=== PATIENT | female | born 1980 | race Caucasian/White ===

== ENCOUNTER 2017-03-12 13:59 | Inpatient (IN) | payer BC ==
[2017-03-12] MEDS ORDERED: Nalbuphine 20 MG/1 ML Amp IVPUSH PRN (17:17)
[2017-03-12] MEDS ORDERED: Ondansetron 4 MG/2 ML SDV IVPUSH PRN (17:17)
[2017-03-12] MEDS ORDERED: Oxytocin/Lactated Ringers 10 UNIT/1,000 ML BAG IV SCH (17:30)
[2017-03-12] MEDS: Lactated Ringers 1,000 ML IV SCH ×2 (19:15→20:20)
--- NOTE | 2017-03-12 19:37 | PCM.PREANE ---
Preanesthetic Assessment - Procedure Proposed Procedure: Continuous Labor Epidural - Anesthesia/Transfusion/Family Hx Anesthesia History: Prior Anesthesia Without Reaction Transfusion History: No Prior Transfusion(s) - Review of Systems General: No Symptoms Pulmonary: No Symptoms Cardiovascular: No Symptoms Gastrointestinal: No symptoms Neurological: No Symptoms Other: Reports: None - Physical Assessment NPO Status Date: 03/12/17 NPO Status Time: 18:30 O2 Sat by Pulse Oximetry: 100 Respiratory Rate: 15 Vital Signs: Last Vital Signs Temp 36.5 C 03/12/17 17:17 Pulse 79 03/12/17 17:17 Resp 15 03/12/17 17:17 BP 119/76 03/12/17 17:17 Pulse Ox 100 03/12/17 17:17 Height: 1.8 m Weight: 73.028 kg ASA Class: 2 Airway Class: Mallampati = 1 Dentition: Reports: Normal Dentition Thyro-Mental Finger Breadths: 3 Mouth Opening Finger Breadths: 3 ROM/Head Extension: Full Lungs: Clear to auscultation, Normal respiratory effort Cardiovascular: Regular Rate, Regular Rhythm, No Murmurs - Lab Values: Laboratory Last Values WBC 8.56 K/mm3 (3.98-10.04) 03/12/17 17:05 RBC 4.65 M/mm3 (3.98-5.22) 03/12/17 17:05 Hgb 12.5 gm/L (11.2-15.7) 03/12/17 17:05 Hct 37.8 % (34.1-44.9) 03/12/17 17:05 MCV 81.3 fl (79.4-94.8) 03/12/17 17:05 MCH 26.9 pg (25.6-32.2) 03/12/17 17:05 MCHC 33.1 g/dl (32.2-35.5) 03/12/17 17:05 RDW Std Deviation 51.7 fL (36.4-46.3) H 03/12/17 17:05 Plt Count 170 K/mm3 (182-369) L 03/12/17 17:05 MPV 11.5 fl (9.4-12.3) 03/12/17 17:05 Neut % (Auto) 56.6 % (34.0-71.1) 03/12/17 17:05 Lymph % (Auto) 32.8 % (19.3-51.7) 03/12/17 17:05 [place] % (Auto) 7.8 % (4.7-12.5) 03/12/17 17:05 Eos % (Auto) 1.9 (0.7-5.8) 03/12/17 17:05 Baso % (Auto) 0.2 % (0.1-1.2) 03/12/17 17:05 Neut # (Auto) 4.84 K/mm3 (1.56-6.13) 03/12/17 17:05 Lymph # (Auto) 2.81 K/mm3 (1.18-3.74) 03/12/17 17:05 [place] # (Auto) 0.67 K/mm3 (0.24-0.36) H 03/12/17 17:05 Eos # (Auto) 0.16 K/mm3 (0.04-0.36) 03/12/17 17:05 Baso # (Auto) 0.02 K/mm3 (0.01-0.08) 03/12/17 17:05 - Allergies Allergies/Adverse Reactions: Allergies Allergy/AdvReac Type Severity Reaction Status Date / Time No Known Allergies Allergy Verified 03/12/17 14:15 - Blood Blood Available: No - Acknowledgements Anesthesia Type Planned: Epidural Pt an Appropriate Candidate for the Planned Anesthesia: Yes Alternatives and Risks of Anesthesia Discussed w Pt/Guardian: Yes Pt/Guardian Understands and Agrees with Anesthesia Plan: Yes PreAnesthesia Questionnaire - Past Health History Medical/Surgical History: Denies Medical/Surgical History [employer]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) : 3 Para: 2 - SUBSTANCE USE Smoking Status *Q: Never Smoker Tobacco Use Within Last Twelve Months: No Second Hand Smoke Exposure: No Days Per Week of Alcohol Use: 0 Recreational Drug Use History: No - HOME MEDS Home Medications: Home Meds Ferrous Sulfate [Iron] 325 mg PO DAILY 03/12/17 [History] Vit W-Ca,Fe,FA(<1 mg) [ Vitamins] 1 tab PO DAILY 03/12/17 [ History] - CURRENT (IN HOUSE) MEDS Current Meds: Current Medications Lactated Ringer's (Ringers, Lactated) 1,000 mls @ 100 mls/hr IV ASDIRECTED [facility] Oxytocin/Lactated Ringer's (Pitocin In Lr 10 Units/1,000 Ml) 10 unit in 1,000 mls @ 500 mls/hr IV ASDIRECTED [facility] Nalbuphine HCl (Nubain) 10 mg IVPUSH Q2H PRN PRN Reason: Pain (moderate 4-6) Ondansetron HCl (Zofran) 4 mg IVPUSH Q4H PRN PRN Reason: Nausea/Vomiting
[2017-03-12] MEDS ORDERED: Bupivacaine/fentaNYL/NS 100 ML Bag EPIDUR SCH (19:45)
--- NOTE | 2017-03-12 22:21 | PCM.LDHP ---
L&D History of Present Illness - General Date of Service: 03/12/17 Admit Problem/Dx: Patient Status Order with Admit Dx/Problem 03/12/17 17:17 Patient Status [ADT] Routine Admission Diagnosis/Problem Admission Diagnosis/Problem Source of Information: Patient History Limitations: Reports: No Limitations - History of Present Illness Introduction:: 36 year old at 39w5d here for elective induction of labor for maternal discomfort. PNC with myself without complications. 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: (current) Social & Family History - Family History Family Medical History: Noncontributory - Tobacco Use Smoking Status *Q: Never Smoker Second Hand Smoke Exposure: No - Caffeine Use Caffeine Use: Reports: None - Alcohol Use Days Per Week of Alcohol Use: 0 - Recreational Drug Use Recreational Drug Use: No - Living Situation & Occupation Living situation: Reports: , with Spouse, with Family Occupation: Employed H&P Review of Systems - Review of Systems: Review Of Systems: See Below General: Reports: No Symptoms HEENT: Reports: No Symptoms Pulmonary: Reports: No Symptoms Cardiovascular: Reports: No Symptoms Gastrointestinal: Reports: No Symptoms Genitourinary: Reports: No Symptoms Musculoskeletal: Reports: No Symptoms Skin: Reports: No Symptoms Psychiatric: Reports: No Symptoms Neurological: Reports: No Symptoms Hematologic/Lymphatic: Reports: No Symptoms Immunologic: Reports: No Symptoms L&D Exam - Exam Exam: See Below - Vital Signs Vital Signs: Last Vital Signs Temp 36.5 C 03/12/17 17:17 Pulse 79 03/12/17 17:17 Resp 15 03/12/17 19:38 BP 119/76 03/12/17 17:17 Pulse Ox 100 03/12/17 19:38 Weight: 73.028 kg - OB Specific Fundal Height In cm: 39 Heart Tones per Min: 145 Heart Rate (FHR) Variability: Moderate (6-25 bmp) Presentation: Vertex - Andujar Score Andujar Score Cervix Position: Anterior Andujar Score Consistency: Soft Andujar Score Effacement: >80% Andujar Score Dilation: 3-4 cm Andujar Score 's Station: -2 Andujar Score Total: 10 - Exam General: Alert, Oriented HEENT: Conjunctiva Clear Neck: Supple, Trachea Midline Lungs: Clear to Auscultation, Normal Respiratory Effort Cardiovascular: Regular Rate, Regular Rhythm Abdomen: Normal Bowel Sounds, Soft Genitourinary: Normal external exam Back Exam: Normal Inspection Extremities: Normal Inspection Skin: Warm, Dry, Intact Neurological: Cranial Nerves Intact Psychiatric: Alert, Normal Affect, Normal Mood - Patient Data Lab Results Last 24 hrs: Laboratory Results - last 24 hr 03/12/17 Range/Units 17:05 WBC 8.56 (3.98-10.04) K/mm3 RBC 4.65 (3.98-5.22) M/mm3 Hgb 12.5 (11.2-15.7) gm/L Hct 37.8 (34.1-44.9) % MCV 81.3 (79.4-94.8) fl MCH 26.9 (25.6-32.2) pg MCHC 33.1 (32.2-35.5) g/dl RDW Std Deviation 51.7 H (36.4-46.3) fL Plt Count 170 L (182-369) K/mm3 MPV 11.5 (9.4-12.3) fl Neut % (Auto) 56.6 (34.0-71.1) % Lymph % (Auto) 32.8 (19.3-51.7) % [place] % (Auto) 7.8 (4.7-12.5) % Eos % (Auto) 1.9 (0.7-5.8) Baso % (Auto) 0.2 (0.1-1.2) % Neut # (Auto) 4.84 (1.56-6.13) K/mm3 Lymph # (Auto) 2.81 (1.18-3.74) K/mm3 [place] # (Auto) 0.67 H (0.24-0.36) K/mm3 Eos # (Auto) 0.16 (0.04-0.36) K/mm3 Baso # (Auto) 0.02 (0.01-0.08) K/mm3 Result Diagrams: 03/12/17 17:05 Problem List Initiated/Reviewed/Updated: Yes Orders Last 24hrs: Active Orders 24 hr Category Date Time Status Patient Status [ADT] Routine ADT 03/12/17 17:17 Active Activity as Tolerated [RC] PFP Care 03/12/17 17:17 Active Communication Order [RC] ASDIRECTED Care 03/12/17 17:17 Active Communication Order [RC] ASDIRECTED Care 03/12/17 19:31 Active Cooling Warming Measures [RC] ASDIRECTED Care 03/12/17 19:31 Active Notify Provider [RC] ASDIRECTED Care 03/12/17 19:31 Active Notify Provider [RC] PFP Care 03/12/17 17:17 Active Notify Provider [RC] PRN Care 03/12/17 17:17 Active Oxygen Therapy [RC] ASDIRECTED Care 03/12/17 19:31 Active Vital Signs [RC] PER UNIT ROUTINE Care 03/12/17 17:17 Active Vital Signs [RC] Q15M Care 03/12/17 19:31 Active Regular Diet [DIET] Diet 03/12/17 Dinner Active Bupivacaine/fentaNYL/NS [fentaNYL/Bupivacaine/NS 2 MCG- Med 03/12/17 19:45 Active 0.125% 100 ML] 100 ml EPIDUR ASDIRECTED Lactated Ringers [Ringers, Lactated] 1,000 ml Med 03/12/17 17:30 Active IV ASDIRECTED Nalbuphine [Nubain] Med 03/12/17 17:17 Active 10 mg IVPUSH Q2H PRN Ondansetron [Zofran] Med 03/12/17 17:17 Active 4 mg IVPUSH Q4H PRN Oxytocin/Lactated Ringers [Pitocin in LR 10 Units/1,000 Med 03/12/17 17:30 Active ML] 10 unit in 1,000 ml IV ASDIRECTED Electronic Heart Tones Ext w TOCO [WOMSER] Oth 03/12/17 17:17 Ordered Routine Electronic Heart Tones Internal [WOMSER] Per Unit Oth 03/12/17 17:17 Ordered Routine Peripheral IV Insertion Adult [OM.PC] Routine Oth 03/12/17 17:17 Ordered Pulse Oximetry Continuous Monitoring [OM.PC] Routine Oth 03/12/17 19:31 Active Resuscitation Status Routine Resus Stat 03/12/17 17:17 Ordered Medication Orders Fentanyl/Bupivacaine HCl (Fentanyl/Bupivacaine/Ns 2 Mcg-0.125% 100 Ml) 100 ml EPIDUR ASDIRECTED [facility] Last Admin: 03/12/17 20:11 Dose: 100 ml Lactated Ringer's (Ringers, Lactated) 1,000 mls @ 100 mls/hr IV ASDIRECTED [facility] Last Admin: 03/12/17 20:20 Dose: 250 mls/hr Infusion: 03/12/17 20:16 Dose: 999 mls/hr Admin: 03/12/17 19:15 Dose: 999 mls/hr Oxytocin/Lactated Ringer's (Pitocin In Lr 10 Units/1,000 Ml) 10 unit in 1,000 mls @ 500 mls/hr IV ASDIRECTED [facility] Last Admin: 03/12/17 22:05 Dose: 500 mls/hr Nalbuphine HCl (Nubain) 10 mg IVPUSH Q2H PRN PRN Reason: Pain (moderate 4-6) Ondansetron HCl (Zofran) 4 mg IVPUSH Q4H PRN PRN Reason: Nausea/Vomiting Assessment/Plan Comment:: 36 year old at 39w5d. 4 CM. AROM clear fluid. Anticipate . Epidural per maternal request.
[2017-03-12] MEDS ORDERED: Bupivacaine 0.25% 10 ML SDV ONE (22:22)
[2017-03-12] MEDS ORDERED: Lanolin 100% Cream 7 GM Tube TOP PRN (22:57)
[2017-03-12] MEDS ORDERED: Docusate Sodium 100 MG Cap PO PRN (22:57)
[2017-03-12] MEDS ORDERED: Witch Hazel Medicated Pads 100/Jar TOP PRN (22:57)
[2017-03-13] MEDS: Ibuprofen 600 MG Tab PO PRN ×4 (01:37→20:32)
[2017-03-13] MEDS: Benzocaine/Menthol 20%-0.5% Spray 56 GM Canister TOP PRN (01:37)
--- NOTE | 2017-03-13 13:31 | PCM48HPAN ---
Post Anesthesia Note - EVALUATION WITHIN 48HRS OF ANESTHETIC Vital Signs in Normal Range: Yes Patient Participated in Evaluation: Yes Respiratory Function Stable: Yes Airway Patent: Yes Cardiovascular Function Stable: Yes Hydration Status Stable: Yes Pain Control Satisfactory: Yes Nausea and Vomiting Control Satisfactory: Yes Mental Status Recovered: Yes
[2017-03-14 05:18] VITALS: BP 105/67
[2017-03-14] MEDS: Benzocaine/Menthol 20%-0.5% Spray 56 GM Canister TOP PRN (07:58)
[2017-03-14] MEDS: Ibuprofen 600 MG Tab PO PRN (10:58)
--- NOTE | 2017-03-15 03:22 | PCM.PNPP ---
- General Info Date of Service: 03/13/17 Functional Status: Reports: pain controlled - Review of Systems General: Reports: No Symptoms HEENT: Reports: no symptoms Pulmonary: Reports: no symptoms Cardiovascular: Reports: No Symptoms Gastrointestinal: Reports: No symptoms Genitourinary: Reports: no symptoms Musculoskeletal: Reports: no symptoms Skin: Reports: no symptoms Neurological: Reports: No Symptoms Psychiatric: Reports: no symptoms - General Info Date of Service: 03/13/17 - Patient Data Vital Signs - most recent: Last Vital Signs Temp 36.8 C 03/14/17 04:48 Pulse 75 03/14/17 04:48 Resp 14 03/14/17 04:48 BP 105/67 03/14/17 04:48 Pulse Ox 99 03/14/17 04:48 Weight - most recent: 73.028 kg I&O - last 24 hours: Intake & Output 03/14/17 03/14/17 03/15/17 14:59 22:59 06:59 Intake Total 120 Balance 120 Med Orders - Current: Current Medications Discontinued Medications Benzocaine/Menthol (Dermoplast Pain Relief [place]) 0 gm TOP ASDIRECTED PRN PRN Reason: Perineal Comfort Measure Last Admin: 03/14/17 07:58 Dose: 1 can Bupivacaine HCl (Sensorcaine-Mpf 0.25%) 10 ml .ROUTE .STK-MED ONE Stop: 03/12/17 22:23 Docusate Sodium (Colace) 100 mg PO BID PRN PRN Reason: Constipation Emollient Ointment (Lansinoh Hpa) 0 gm TOP ASDIRECTED PRN PRN Reason: Sore Nipples Last Admin: 03/13/17 20:32 Dose: 1 tube Fentanyl/Bupivacaine HCl (Fentanyl/Bupivacaine/Ns 2 Mcg-0.125% 100 Ml) 100 ml EPIDUR ASDIRECTED [facility] Last Admin: 03/12/17 20:11 Dose: 100 ml Lactated Ringer's (Ringers, Lactated) 1,000 mls @ 100 mls/hr IV ASDIRECTED [facility] Last Admin: 03/12/17 20:20 Dose: 250 mls/hr Oxytocin/Lactated Ringer's (Pitocin In Lr 10 Units/1,000 Ml) 10 unit in 1,000 mls @ 500 mls/hr IV ASDIRECTED [facility] Last Admin: 03/12/17 22:05 Dose: 500 mls/hr Ibuprofen (Motrin) 600 mg PO Q6H PRN PRN Reason: Mild pain or fever Last Admin: 03/14/17 10:58 Dose: 600 mg Nalbuphine HCl (Nubain) 10 mg IVPUSH Q2H PRN PRN Reason: Pain (moderate 4-6) Ondansetron HCl (Zofran) 4 mg IVPUSH Q4H PRN PRN Reason: Nausea/Vomiting Witch Jennifer (Tucks) 1 pad TOP ASDIRECTED PRN PRN Reason: Hemorrhoid pain Last Admin: 03/13/17 01:37 Dose: 1 canister - Interaction Infant Disposition, : [place] at Bedside Support Person: - Recovery Exam Fundal Tone: Firm Fundal Level: 1 Fingerbreadths Below Umbilicus Fundal Placement: Midline Lochia Amount: Small Lochia Color: Rubra/Red Perineum Description: Other (see below) Other Perinuem Description: 1st degree Episiotomy/Laceration: Approximated Bladder Status: Voiding Urinary Elimination: Voided - Exam General: alert, oriented HEENT: Pupils equal Neck: supple Lungs: Clear to auscultation, Normal respiratory effort Cardiovascular: Regular Rate, Regular Rhythm Abdomen: bowel sounds present, soft, no tenderness, no distension Extremities: no edema Skin: warm, dry, intact Wound/Incisions: healing well Neurological: no new focal deficit Psy/Mental Status: alert, normal affect, normal mood - Problem List Review Problem List Initiated/Reviewed/Updated: Yes - My Orders Last 24 Hours: My Active Orders 03/14/17 09:58 Ready for Discharge [RC] PER UNIT ROUTINE - Assessment Assessment:: S/P term delivery. Doing great. Routine cares. Support if continues to be patient desire.
--- NOTE | 2017-03-15 03:24 | PCM.DCSUM1 ---
Discharge Summary - Discharge Data Discharge Date: 03/14/17 Discharge Disposition: Home, Self-Care 01 Condition: Good - Patient Instructions Diet: Usual Diet as Tolerated Driving: May Drive Today Showering/Bathing: May Shower Wound/Incision Care: Keep Operative Site/Wound Site Clean and Dry Notify Provider of: Fever, Increased Pain, Swelling and Redness, Drainage, Nausea and/or Vomiting - Discharge Plan Home Medications: Home Meds Ferrous Sulfate [Iron] 325 mg PO DAILY 03/12/17 [History] Vit W-Ca,Fe,FA(<1 mg) [ Vitamins] 1 tab PO DAILY 03/12/17 [ History] Benzocaine/Menthol [Dermoplast Pain Relief [place]] 56 gm TOP ASDIRECTED PRN #0 canister 03/14/17 [Rx] Docusate Sodium [Colace] 100 mg PO BID PRN #0 cap 03/14/17 [Rx] Ibuprofen [IJD: Ibuprofen] 600 mg PO Q6H PRN #0 tablet 03/14/17 [Rx] Witch Jennifer [Tucks] 1 pad TOP ASDIRECTED PRN #0 pad 03/14/17 [Rx] Patient Handouts: Depression and Baby Blues, Home Care Instructions for Mom, Challenges and Solutions Referrals: Eliza Calvillo MD [Physician] - (Follow up in 6 weeks, Call to schedule appointment with Dr. Calvillo. ) - Discharge Summary/Plan Comment DC Time >30 min.: No - General Info Date of Service: 03/15/17 Functional Status: Reports: pain controlled - Review of Systems General: Reports: No Symptoms HEENT: Reports: no symptoms Pulmonary: Reports: no symptoms Cardiovascular: Reports: No Symptoms Gastrointestinal: Reports: No symptoms Genitourinary: Reports: no symptoms Musculoskeletal: Reports: no symptoms Skin: Reports: no symptoms Neurological: Reports: No Symptoms Psychiatric: Reports: no symptoms - Patient Data Vitals - Most Recent: Last Vital Signs Temp 36.8 C 03/14/17 04:48 Pulse 75 03/14/17 04:48 Resp 14 03/14/17 04:48 BP 105/67 03/14/17 04:48 Pulse Ox 99 03/14/17 04:48 Weight - Most Recent: 73.028 kg I&O - Last 24 hours: Intake & Output 03/14/17 03/14/17 03/15/17 14:59 22:59 06:59 Intake Total 120 Balance 120 Med Orders - Current: Current Medications Discontinued Medications Benzocaine/Menthol (Dermoplast Pain Relief [place]) 0 gm TOP ASDIRECTED PRN PRN Reason: Perineal Comfort Measure Last Admin: 03/14/17 07:58 Dose: 1 can Bupivacaine HCl (Sensorcaine-Mpf 0.25%) 10 ml .ROUTE .STK-MED ONE Stop: 03/12/17 22:23 Docusate Sodium (Colace) 100 mg PO BID PRN PRN Reason: Constipation Emollient Ointment (Lansinoh Hpa) 0 gm TOP ASDIRECTED PRN PRN Reason: Sore Nipples Last Admin: 03/13/17 20:32 Dose: 1 tube Fentanyl/Bupivacaine HCl (Fentanyl/Bupivacaine/Ns 2 Mcg-0.125% 100 Ml) 100 ml EPIDUR ASDIRECTED [facility] Last Admin: 03/12/17 20:11 Dose: 100 ml Lactated Ringer's (Ringers, Lactated) 1,000 mls @ 100 mls/hr IV ASDIRECTED [facility] Last Admin: 03/12/17 20:20 Dose: 250 mls/hr Oxytocin/Lactated Ringer's (Pitocin In Lr 10 Units/1,000 Ml) 10 unit in 1,000 mls @ 500 mls/hr IV ASDIRECTED [facility] Last Admin: 03/12/17 22:05 Dose: 500 mls/hr Ibuprofen (Motrin) 600 mg PO Q6H PRN PRN Reason: Mild pain or fever Last Admin: 03/14/17 10:58 Dose: 600 mg Nalbuphine HCl (Nubain) 10 mg IVPUSH Q2H PRN PRN Reason: Pain (moderate 4-6) Ondansetron HCl (Zofran) 4 mg IVPUSH Q4H PRN PRN Reason: Nausea/Vomiting Witch Jennifer (Tucks) 1 pad TOP ASDIRECTED PRN PRN Reason: Hemorrhoid pain Last Admin: 03/13/17 01:37 Dose: 1 canister - Exam General: Reports: alert, oriented HEENT: Reports: Pupils equal, Pupils reactive, EOMI, Mucous membr. moist/pink Neck: Reports: supple Lungs: Reports: Clear to auscultation, Normal respiratory effort Cardiovascular: Reports: Regular Rate, Regular Rhythm Abdomen: Reports: bowel sounds present, soft, no tenderness, no distension (Female) Exam: Normal External Exam, Normal Speculum Exam, Normal Bimanual Exam Back Exam: Reports: Normal Inspection, Full Range of Motion Extremities: Reports: no edema, normal pulses Skin: Reports: warm, dry, intact Wound/Incisions: Reports: healing well Neurological: Reports: no new focal deficit Psy/Mental Status: Reports: alert, normal affect, normal mood *Q Meaningful Use (DIS) - VTE *Q VTE Criteria *Q: - Stroke *Q Stroke Criteria *Q: - AMI *Q AMI Criteria *Q:
== END 2017-03-14 11:30 | disposition home or self-care (01) | DRG 560 ==
LOC: JD.OB 16:44 → OBSVTOIN 21:58 → JD.OB 03-13 09:27
PROVIDERS: ADMIT Obstetrics & Gynecology; ATTEND Obstetrics & Gynecology
PROC: 10E0XZZ Delivery of Products of Conception, External Approach (ICD-10-PCS; principal; 2017-03-12)
PROC: 10907ZC Drainage of Amniotic Fluid, Therapeutic from Products of Conception, Via Natural or Artificial Opening (ICD-10-PCS; 2017-03-12)
PROC: 0HQ9XZZ Repair Perineum Skin, External Approach (ICD-10-PCS; 2017-03-12)
PROC: 00HU33Z Insertion of Infusion Device into Spinal Canal, Percutaneous Approach (ICD-10-PCS; 2017-03-12)
DX: O70.0 First degree perineal laceration during delivery (principal); Z3A.39 39 weeks gestation of pregnancy; Z37.0 Single live birth; O36.1190 Maternal care for Anti-A sensitization, unspecified trimester, not applicable or unspecified
CPT/HCPCS: 01967; 36415; 85025; A9270-GY; J2590; J7120